=== PATIENT | female | born 1950 | race African-American/Black ===

== ENCOUNTER 2017-08-08 09:35 | Inpatient (IN) ==
[2017-08-08] MEDS ORDERED: ONDANSETRON 4 MG/2 ML VIAL IV PRN ×2 (10:01→11:41)
[2017-08-08 10:49] LABS: Apearance,Urine CLEAR (Clear); Bilirubin,Urine Negative (Negative); Blood, Urine Negative (Negative); Glucose,Urine (UA) Negative (Negative); Ketones,Urine Negative (Negative); Nitrite,Urine Negative (Negative); Protein,Urine Negative; RBC,Urine <1 /HPF (0-4); Squamous Epithelial Cell,Urine Occasional /HPF (0-10); Urine Color Yellow (Yellow); Urine Urobilinogen < 2.0 EU/DL (0.2-1.0); WBC,Urine <1 /HPF (0-6)
[2017-08-08 11:08] LABS: Basophils % 0.4 % (0.0-0.8); Eosinophils # 0.1 10*3/uL (0.0-0.87); Eosinophils % 0.8 % (0.00-10.9); Hematocrit 33.8 VOL% (35.7-47.0); Hemoglobin 11.7 GM/DL (12.0-16.0); Immature Granulocytes % 0.7 %; Immature Granulocytes Absolute 0.05 #; Lymphocytes # 0.6 10*3/uL (1.4-4.0); Lymphocytes % 8.1 % (21.3-54.2); Mean Corpuscular HGB Conc 34.6 GM/DL (32-36); Mean Corpuscular Hemoglobin 30 PG (27-34); Mean Corpuscular Volume 86.4 FL (87-102); Mean Platelet Volume 10.4 FL (9.6-12.0); Monocytes # 0.6 10*3/uL (0.11-0.8); Monocytes % 7.3 % (1.7-12.7); Neutrophils # 6.2 10*3/uL (1.4-7.4); Neutrophils % 82.7 % (38.7-73.9); Platelet Count 210 T/CUMM (130-400); Red Blood Count 3.91 MC/CUMM (3.8-5.5); Red Cell Distribution Width 14.2 % (9.3-17.3); White Blood Count 7.5 T/CUMM (4-12)
[2017-08-08 11:14] LABS: INR 1.2; PT Patient Result 12.7 SECS
[2017-08-08 11:34] LABS: Alanine Aminotransferase 16 U/L (13-56); Albumin 2.2 G/DL (3.4-5.0); Alkaline Phosphatase 146 U/L (45-117); Aspartate Amino Transferase 17 U/L (0-37); Bilirubin,Total < 0.39 MG/DL (0.2-1.0); Blood Urea Nitrogen 8 MG/DL (7-18); Calcium 8.3 MG/DL (8.5-10.1); Glucose 76 MG/DL (74-106); Osmolality,Calculated 269.8 MOS/KG (273-304); Potassium 4.2 MMOL/L (3.5-5.1); Sodium 137 MMOL/L (136-145); Total Protein 6.3 G/DL (6.4-8.3); Troponin I Only 0.179 NG/ML (0.00-0.045)
[2017-08-08] MEDS ORDERED: ACETAMINOPHEN 325 MG TABLET PO PRN (11:41)
[2017-08-08] MEDS ORDERED: SODIUM CHLORIDE 0.9% 1,000 ML IV SCH (12:00)
[2017-08-08] MEDS: FOLIC ACID 1 MG TABLET PO SCH (18:20)
[2017-08-08 18:37] LABS: CKMB % 3.6 %
[2017-08-08 18:38] LABS: Troponin I Only 0.105 NG/ML (0.00-0.045)
[2017-08-08] MEDS: ASPIRIN EC 81 MG TABLET PO SCH (21:27)
[2017-08-08] MEDS: LORATADINE 10 MG TABLET PO SCH (21:28)
[2017-08-08] MEDS: PRAVASTATIN 40 MG TABLET PO SCH (21:28)
[2017-08-08 22:31] LABS: CKMB % 3.7 %
[2017-08-08 22:32] LABS: Troponin I Only 0.082 NG/ML (0.00-0.045)
[2017-08-09 04:40] LABS: Basophils % 0.6 % (0.0-0.8); Eosinophils # 0.2 10*3/uL (0.0-0.87); Eosinophils % 3.1 % (0.00-10.9); Hematocrit 31.9 VOL% (35.7-47.0); Hemoglobin 11.2 GM/DL (12.0-16.0); Immature Granulocytes % 0.4 %; Immature Granulocytes Absolute 0.02 #; Lymphocytes # 1.3 10*3/uL (1.4-4.0); Lymphocytes % 23.9 % (21.3-54.2); Mean Corpuscular HGB Conc 35.1 GM/DL (32-36); Mean Corpuscular Hemoglobin 30 PG (27-34); Mean Corpuscular Volume 85.8 FL (87-102); Mean Platelet Volume 11.3 FL (9.6-12.0); Monocytes # 0.8 10*3/uL (0.11-0.8); Monocytes % 13.9 % (1.7-12.7); Neutrophils # 3.1 10*3/uL (1.4-7.4); Neutrophils % 58.1 % (38.7-73.9); Platelet Count 203 T/CUMM (130-400); Red Blood Count 3.72 MC/CUMM (3.8-5.5); Red Cell Distribution Width 14.3 % (9.3-17.3); White Blood Count 5.4 T/CUMM (4-12)
[2017-08-09 05:27] LABS: Calcium 8.3 MG/DL (8.5-10.1); Osmolality,Calculated 280.3 MOS/KG (273-304); Potassium 3.6 MMOL/L (3.5-5.1); Risk Ratio 2.75; Thyroid Stimulating Hormone 0.665 uIU/ml (0.358-3.74)
[2017-08-09] MEDS: PANTOPRAZOLE 40 MG TABLET PO SCH (09:01)
[2017-08-09] MEDS: CALCIUM (CARBONATE)/VITAMIN D 600 MG-400 UNIT TABLET PO SCH (09:01)
[2017-08-09] MEDS ORDERED: diphenhydrAMINE CAP 25 MG CAPSULE PO ONE (12:30)
[2017-08-09] MEDS ORDERED: MAGNESIUM SULF RIDER 2 GM in PREMIX 1 EACH IV PRN (12:30)
[2017-08-09] MEDS ORDERED: DIAZEPAM 5 MG TABLET PO ONE (12:30)
[2017-08-09] MEDS ORDERED: SODIUM CHLORIDE 0.45% 1,000 ML IV SCH ×2 (12:30→20:30)
[2017-08-09] MEDS ORDERED: POTASSIUM CHLORIDE RIDER 10 MEQ in PREMIX 1 EACH IV PRN (12:30)
[2017-08-09] MEDS ORDERED: HEPARIN/NACL 0.9% 2 UNITS/ML 1,000 ML IV ONE (13:32)
[2017-08-09] MEDS ORDERED: MIDAZOLAM 2 MG/2 ML VIAL ONE (13:36)
[2017-08-09] MEDS ORDERED: fentaNYL 100 MCG/2 ML VIAL ONE (13:36)
[2017-08-09] MEDS ORDERED: NITROGLYCERIN DRIP 50 MG/250 ML BOTTLE IV ONE (13:46)
[2017-08-09] MEDS ORDERED: VERAPAMIL 5 MG/2 ML VIAL ONE (13:46)
[2017-08-09] MEDS ORDERED: ENOXAPARIN 60 MG/0.6 ML SYRINGE ONE (14:04)
[2017-08-09] MEDS: FOLIC ACID 1 MG TABLET PO SCH (18:07)
[2017-08-09] MEDS: PRAVASTATIN 40 MG TABLET PO SCH (21:16)
[2017-08-09] MEDS: ASPIRIN EC 81 MG TABLET PO SCH (21:16)
[2017-08-09] MEDS: LORATADINE 10 MG TABLET PO SCH (21:16)
[2017-08-10 05:12] LABS: Basophils # 0.1 10*3/uL (0.0-0.2); Basophils % 0.8 % (0.0-0.8); Eosinophils # 0.3 10*3/uL (0.0-0.87); Hematocrit 33.3 VOL% (35.7-47.0); Hemoglobin 11.3 GM/DL (12.0-16.0); Immature Granulocytes % 0.5 %; Immature Granulocytes Absolute 0.03 #; Lymphocytes # 1.5 10*3/uL (1.4-4.0); Mean Corpuscular HGB Conc 33.9 GM/DL (32-36); Mean Corpuscular Hemoglobin 30 PG (27-34); Mean Corpuscular Volume 88.1 FL (87-102); Mean Platelet Volume 11.2 FL (9.6-12.0); Monocytes # 0.9 10*3/uL (0.11-0.8); Monocytes % 14.5 % (1.7-12.7); Neutrophils # 3.5 10*3/uL (1.4-7.4); Neutrophils % 56.2 % (38.7-73.9); Platelet Count 220 T/CUMM (130-400); Red Blood Count 3.78 MC/CUMM (3.8-5.5); Red Cell Distribution Width 14.4 % (9.3-17.3); White Blood Count 6.3 T/CUMM (4-12)
[2017-08-10 05:57] LABS: Calcium 8.1 MG/DL (8.5-10.1); Osmolality,Calculated 280.3 MOS/KG (273-304); Potassium 3.8 MMOL/L (3.5-5.1)
[2017-08-10] MEDS ORDERED: ceFAZolin 1,000 MG in SYRINGE 1 EACH IV ONE (06:30)
[2017-08-10] MEDS ORDERED: ceFAZolin 1,000 MG VIAL IRRIG ONE (06:30)
[2017-08-10] MEDS ORDERED: HEPARIN/NACL 0.9% 2 UNITS/ML 500 ML IV ONE (07:11)
[2017-08-10] MEDS ORDERED: TISSUE ADHESIVE 1 EACH APPLICATOR TOP ONE (07:12)
[2017-08-10] MEDS ORDERED: fentaNYL 100 MCG/2 ML VIAL ONE (07:12)
[2017-08-10] MEDS ORDERED: MIDAZOLAM 2 MG/2 ML VIAL ONE (07:12)
[2017-08-10] MEDS ORDERED: ceFAZolin 1,000 MG VIAL ONE (07:13)
[2017-08-10] MEDS: CALCIUM (CARBONATE)/VITAMIN D 600 MG-400 UNIT TABLET PO SCH (18:46)
[2017-08-10] MEDS: PANTOPRAZOLE 40 MG TABLET PO SCH (18:47)
[2017-08-10] MEDS: LORATADINE 10 MG TABLET PO SCH (21:14)
[2017-08-10] MEDS: FOLIC ACID 1 MG TABLET PO SCH (21:14)
[2017-08-10] MEDS: ASPIRIN EC 81 MG TABLET PO SCH (21:14)
[2017-08-10] MEDS: PRAVASTATIN 40 MG TABLET PO SCH (21:14)
[2017-08-11 06:59] LABS: Basophils % 0.7 % (0.0-0.8); Eosinophils # 0.2 10*3/uL (0.0-0.87); Eosinophils % 3.8 % (0.00-10.9); Hematocrit 37.5 VOL% (35.7-47.0); Hemoglobin 12.6 GM/DL (12.0-16.0); Immature Granulocytes % 0.3 %; Immature Granulocytes Absolute 0.02 #; Lymphocytes # 1.6 10*3/uL (1.4-4.0); Lymphocytes % 27.7 % (21.3-54.2); Mean Corpuscular HGB Conc 33.6 GM/DL (32-36); Mean Corpuscular Hemoglobin 30 PG (27-34); Mean Corpuscular Volume 88.7 FL (87-102); Mean Platelet Volume 10.6 FL (9.6-12.0); Monocytes # 0.6 10*3/uL (0.11-0.8); Monocytes % 10.3 % (1.7-12.7); Neutrophils # 3.3 10*3/uL (1.4-7.4); Neutrophils % 57.2 % (38.7-73.9); Platelet Count 192 T/CUMM (130-400); Red Blood Count 4.23 MC/CUMM (3.8-5.5); Red Cell Distribution Width 14.8 % (9.3-17.3); White Blood Count 5.8 T/CUMM (4-12)
[2017-08-11 07:21] LABS: Calcium 8.2 MG/DL (8.5-10.1); Osmolality,Calculated 279.4 MOS/KG (273-304); Potassium 3.8 MMOL/L (3.5-5.1)
[2017-08-11 08:29] VITALS: BP 118/73
[2017-08-11] MEDS: PANTOPRAZOLE 40 MG TABLET PO SCH (08:47)
[2017-08-11] MEDS: CALCIUM (CARBONATE)/VITAMIN D 600 MG-400 UNIT TABLET PO SCH (08:47)
[2017-08-11] MEDS ORDERED: MAGNESIUM SULF RIDER 2 GM in PREMIX 1 EACH IV ONE (09:13)
[2017-08-12] MEDS ORDERED: FUROSEMIDE 20 MG TABLET PO SCH (09:00)
[2017-08-12] MEDS ORDERED: METHOTREXATE 2.5 MG TABLET PO SCH (12:00)
== END 2017-08-11 15:32 | disposition home or self-care (01) | DRG 243 ==
LOC: N.ED 09:35 → N.EDINP 10:32 → N.TELEN 14:19
PROVIDERS: ADMIT Internal Medicine; ATTEND Internal Medicine
PROC: CLCCHCL (ICD-10-PCS; 2017-08-09 14:15)

== ENCOUNTER 2019-08-20 10:15 | Inpatient (IN) ==
[2019-08-20] MEDS ORDERED: FUROSEMIDE 100 MG/10 ML VIAL IV STA (12:26)
[2019-08-20 12:59] LABS: Basophils # 0.1 10*3/uL (0.0-0.2); Basophils % 0.4 % (0.0-0.8); Eosinophils # 0.1 10*3/uL (0.0-0.87); Eosinophils % 0.4 % (0.00-10.9); Hematocrit 35.4 VOL% (35.7-47.0); Hemoglobin 11.7 GM/DL (12.0-16.0); Immature Granulocytes % 0.7 %; Immature Granulocytes Absolute 0.09 #; Lymphocytes # 0.8 10*3/uL (1.4-4.0); Lymphocytes % 5.7 % (21.3-54.2); Mean Corpuscular HGB Conc 33.1 GM/DL (32-36); Mean Corpuscular Volume 84.5 FL (87-102); Mean Platelet Volume 11.5 FL (9.6-12.0); Monocytes % 5.6 % (1.7-12.7); Neutrophils % 87.2 % (38.7-73.9); Platelet Count 260 T/CUMM (130-400); Red Blood Count 4.19 MC/CUMM (3.8-5.5); Red Cell Distribution Width 14.1 % (9.3-17.3); White Blood Count 13.1 T/CUMM (4-12)
[2019-08-20 13:22] LABS: Bilirubin,Total 0.5 MG/DL (0.2-1.0); Calcium 9.3 MG/DL (8.5-10.1); Ferritin 282.1 ng/ml (8-252); Osmolality,Calculated 264.4 MOS/KG (273-304); Total Protein 8.9 G/DL (6.4-8.3)
[2019-08-20 13:58] LABS: Hypochromasia Slight; Microcytosis Slight; Platelet Estimate Normal
[2019-08-20] MEDS ORDERED: GLUCAGON 1 MG VIAL IM PRN (15:35)
[2019-08-20] MEDS ORDERED: DEXTROSE 10% 250 ML BAG IV PRN (15:35)
[2019-08-20] MEDS ORDERED: ONDANSETRON 4 MG/2 ML VIAL IV PRN (15:35)
[2019-08-20] MEDS ORDERED: guaiFENesin/DM ER 600-30 MG TABLET PO PRN (15:35)
[2019-08-20] MEDS ORDERED: DOCUSATE SODIUM 100 MG CAPSULE PO PRN (15:35)
[2019-08-20] MEDS ORDERED: LACTULOSE 20 GM/30 ML UDCUP PO PRN (15:35)
[2019-08-20] MEDS ORDERED: FUROSEMIDE 40 MG/4 ML VIAL ONE (16:38)
[2019-08-20] MEDS: ENOXAPARIN 40 MG/0.4 ML SYRINGE SUBCUT SCH (17:25)
[2019-08-20] MEDS: cefTRIAXone 1,000 MG in SYRINGE 1 EACH IV SCH (17:26)
[2019-08-20] MEDS: DOXYCYCLINE HYCLATE 100 MG CAPSULE PO SCH (20:30)
[2019-08-21 07:26] LABS: Basophils # 0.1 10*3/uL (0.0-0.2); Basophils % 0.5 % (0.0-0.8); Eosinophils # 0.1 10*3/uL (0.0-0.87); Eosinophils % 1.2 % (0.00-10.9); Hematocrit 35.3 VOL% (35.7-47.0); Hemoglobin 11.7 GM/DL (12.0-16.0); Immature Granulocytes % 0.4 %; Immature Granulocytes Absolute 0.05 #; Lymphocytes # 1.8 10*3/uL (1.4-4.0); Lymphocytes % 16.2 % (21.3-54.2); Mean Corpuscular HGB Conc 33.1 GM/DL (32-36); Mean Corpuscular Volume 81.5 FL (87-102); Mean Platelet Volume 10.6 FL (9.6-12.0); Monocytes % 8.6 % (1.7-12.7); Neutrophils % 73.1 % (38.7-73.9); Platelet Count 389 T/CUMM (130-400); Red Blood Count 4.33 MC/CUMM (3.8-5.5); Red Cell Distribution Width 13.3 % (9.3-17.3); White Blood Count 11.3 T/CUMM (4-12)
[2019-08-21 07:51] LABS: Albumin 2.9 G/DL (3.4-5.0); Bilirubin,Total 1.7 MG/DL (0.2-1.0); Calcium 9.5 MG/DL (8.5-10.1); Osmolality,Calculated 273.7 MOS/KG (273-304); Thyroid Stimulating Hormone 0.429 uIU/ml (0.358-3.74); Total Protein 8.9 G/DL (6.4-8.3)
[2019-08-21 07:57] LABS: Apearance,Urine CLEAR (Clear); Bilirubin,Urine Negative (Negative); Blood, Urine Negative (Negative); Glucose,Urine (UA) Negative (Negative); Ketones,Urine 5 mg/dL (Negative); Mucus,Urine Occasional /LPF (Occasional); Nitrite,Urine Negative (Negative); Protein,Urine 100 MG/DL; RBC,Urine 1 /HPF (0-4); Squamous Epithelial Cell,Urine Occasional /HPF (0-10); Urine Color Yellow (Yellow); Urine Specific Gravity 1.015 (1.001-1.035); Urine Urobilinogen < 2.0 EU/DL (0.2-1.0); WBC,Urine 5 /HPF (0-6)
[2019-08-21] MEDS ORDERED: POTASSIUM CHLORIDE 20 MEQ TABLET PO ONE (08:03)
[2019-08-21] MEDS: HYDROXYCHLOROQUINE 200 MG TABLET PO SCH ×2 (08:13→20:45)
[2019-08-21] MEDS: PANTOPRAZOLE 40 MG TABLET PO SCH (08:13)
[2019-08-21] MEDS: DOXYCYCLINE HYCLATE 100 MG CAPSULE PO SCH ×2 (08:13→20:45)
[2019-08-21] MEDS ORDERED: ZINC SULFATE 220 MG CAPSULE PO SCH (09:00)
[2019-08-21] MEDS ORDERED: BENZONATATE 100 MG CAPSULE PO PRN (11:41)
[2019-08-21] MEDS: cefTRIAXone 1,000 MG in SYRINGE 1 EACH IV SCH (16:32)
[2019-08-21] MEDS: ENOXAPARIN 40 MG/0.4 ML SYRINGE SUBCUT SCH (16:32)
[2019-08-21] MEDS: carvediloL 3.125 MG TABLET PO SCH (20:45)
[2019-08-21] MEDS: MYCOPHENOLATE MOFETIL 250 MG CAPSULE PO SCH (20:45)
[2019-08-21] MEDS ORDERED: SIMVASTATIN 20 MG TABLET PO SCH (21:00)
[2019-08-22 06:34] LABS: Basophils # 0.1 10*3/uL (0.0-0.2); Basophils % 0.8 % (0.0-0.8); Eosinophils # 0.6 10*3/uL (0.0-0.87); Eosinophils % 6.5 % (0.00-10.9); Hematocrit 34.2 VOL% (35.7-47.0); Hemoglobin 11.3 GM/DL (12.0-16.0); Immature Granulocytes % 0.5 %; Immature Granulocytes Absolute 0.04 #; Lymphocytes # 1.6 10*3/uL (1.4-4.0); Lymphocytes % 18.8 % (21.3-54.2); Mean Platelet Volume 10.3 FL (9.6-12.0); Monocytes % 13.8 % (1.7-12.7); Neutrophils % 59.6 % (38.7-73.9); Platelet Count 350 T/CUMM (130-400); Red Blood Count 4.07 MC/CUMM (3.8-5.5); Red Cell Distribution Width 13.5 % (9.3-17.3); White Blood Count 8.7 T/CUMM (4-12)
[2019-08-22 08:30] LABS: Albumin 2.5 G/DL (3.4-5.0); Bilirubin,Total 1.1 MG/DL (0.2-1.0); Calcium 9.1 MG/DL (8.5-10.1); Osmolality,Calculated 277.4 MOS/KG (273-304); Total Protein 7.7 G/DL (6.4-8.3)
[2019-08-22] MEDS: DOXYCYCLINE HYCLATE 100 MG CAPSULE PO SCH (08:37)
[2019-08-22] MEDS: MYCOPHENOLATE MOFETIL 250 MG CAPSULE PO SCH (08:38)
[2019-08-22] MEDS: carvediloL 3.125 MG TABLET PO SCH (08:39)
[2019-08-22] MEDS: PANTOPRAZOLE 40 MG TABLET PO SCH (08:39)
[2019-08-22] MEDS ORDERED: HYDROXYCHLOROQUINE 200 MG TABLET PO SCH (09:00)
[2019-08-22] MEDS ORDERED: hydroCHLOROthiazide 12.5 MG CAPSULE PO SCH (09:00)
[2019-08-22] MEDS ORDERED: amLODIPine 10 MG TABLET PO SCH (09:00)
[2019-08-22] MEDS ORDERED: POTASSIUM CHLORIDE 10 MEQ TABLET PO SCH (09:00)
[2019-08-22] MEDS ORDERED: lisinopriL 10 MG TABLET PO SCH (09:00)
[2019-08-22 12:12] VITALS: BP 100/72
== END 2019-08-22 14:15 | disposition home or self-care (01) | DRG 195 ==
LOC: N.ED 10:15 → N.EDINP 15:34 → N.2E 16:28
PROVIDERS: ADMIT Internal Medicine; ATTEND Internal Medicine

== ENCOUNTER 2019-09-03 03:03 | Inpatient (IN) ==
[2019-09-03] MEDS ORDERED: FUROSEMIDE 100 MG/10 ML VIAL IV STA (03:36)
[2019-09-03] MEDS ORDERED: ONDANSETRON 4 MG/2 ML VIAL IV STA (03:36)
[2019-09-03] MEDS ORDERED: methylPREDNISolone SOD SUC 125 MG/2 ML VIAL IV STA (03:36)
[2019-09-03] MEDS ORDERED: ALBUTEROL NEB SOLN 5 MG/ML 20 ML/BOTTLE CONT NEB SCH (04:00)
[2019-09-03 04:11] LABS: Allen Test Positive; Pt O2 Delivery Device BIPAP
[2019-09-03 04:15] LABS: ABG Base Excess -5.8 MMOL/L (-2.5-2.5); ABG HCO3 18.3 MMOL/L (20-26); ABG Oxygen Saturation 98.1 % (95-100); ABG PCO2 31.4 MM HG (35-48); ABG PH 7.384 (7.35-7.45); ABG PO2 118.8 MM HG (80-95); ABG TCO2 19.3 MMOL/L (23-27)
[2019-09-03 04:25] LABS: Basophils % 0.2 % (0.0-0.8); Eosinophils # 0.2 10*3/uL (0.0-0.87); Eosinophils % 1.1 % (0.00-10.9); Hematocrit 32.4 VOL% (35.7-47.0); Hemoglobin 10.6 GM/DL (12.0-16.0); Immature Granulocytes % 0.6 %; Immature Granulocytes Absolute 0.09 #; Lymphocytes # 0.8 10*3/uL (1.4-4.0); Lymphocytes % 5.2 % (21.3-54.2); Mean Corpuscular HGB Conc 32.7 GM/DL (32-36); Mean Corpuscular Volume 84.2 FL (87-102); Mean Platelet Volume 9.8 FL (9.6-12.0); Monocytes % 2.1 % (1.7-12.7); Neutrophils % 90.8 % (38.7-73.9); Platelet Count 369 T/CUMM (130-400); Red Blood Count 3.85 MC/CUMM (3.8-5.5); Red Cell Distribution Width 14.7 % (9.3-17.3); White Blood Count 15.8 T/CUMM (4-12)
[2019-09-03 04:45] LABS: INR 1.2; PT Patient Result 12.9 SECS (9.8-11.9)
[2019-09-03 04:48] LABS: Barbiturates Screen,Urine Negative (Negative); Benzodiazepines Screen,Urine Negative (Negative); Cannabinoid Screen,Urine Negative (Negative); Opiate Screen,Urine Negative (Negative); Phencyclidine Screen,Urine Negative (Negative)
[2019-09-03 04:49] LABS: Band Neutrophils 6 % (0-10); Eosinophils 1 % (0-10); Hypochromasia 1+; Lymphocytes 2 % (20-55); Microcytosis Slight; Polychromasia Slight; Segmented Neutrophils 89 % (50-85); Total Cells Counted 100
[2019-09-03 04:56] LABS: Alanine Aminotransferase 13 U/L (13-56); Albumin 2.4 G/DL (3.4-5.0); Alkaline Phosphatase 86 U/L (45-117); Aspartate Amino Transferase 21 U/L (0-37); Blood Urea Nitrogen 8 MG/DL (7-18); Estimated Glom Filtration Rate 57 ML/MIN; Glucose 125 MG/DL (74-106); Osmolality,Calculated 264.4 MOS/KG (273-304); Total Protein 8.6 G/DL (6.4-8.3); Troponin I < 0.015 NG/ML (0.00-0.045)
[2019-09-03 05:00] LABS: Apearance,Urine Slightly Hazy (Clear); Bacteria,Urine Occasional /HPF (Few); Bilirubin,Urine Negative (Negative); Blood, Urine Negative (Negative); Glucose,Urine (UA) Negative (Negative); Hyaline Casts,Urine 1 /LPF (0-3); Ketones,Urine Negative (Negative); Mucus,Urine Few /LPF (Occasional); Nitrite,Urine Negative (Negative); Protein,Urine 30 MG/DL; RBC,Urine 1 /HPF (0-4); Squamous Epithelial Cell,Urine Occasional /HPF (0-10); Urine Color Yellow (Yellow); Urine Specific Gravity 1.012 (1.001-1.035); Urine Urobilinogen < 2.0 EU/DL (0.2-1.0); WBC,Urine 1 /HPF (0-6)
[2019-09-03] MEDS ORDERED: MAGNESIUM SULF RIDER 2 GM in PREMIX 1 EACH IV STA (05:00)
[2019-09-03] MEDS ORDERED: ENOXAPARIN 100 MG/ML SYRINGE SUBCUT STA (05:12)
[2019-09-03] MEDS ORDERED: guaiFENesin/DM ER 600-30 MG TABLET PO PRN (06:24)
[2019-09-03] MEDS ORDERED: ACETAMINOPHEN 325 MG TABLET PO PRN (06:24)
[2019-09-03] MEDS ORDERED: BENZONATATE 100 MG CAPSULE PO PRN (06:24)
[2019-09-03] MEDS ORDERED: NIFEdipine 10 MG CAPSULE PO PRN (06:41)
[2019-09-03] MEDS ORDERED: ALUMINUM/MAGNES/SIMETH MAX STR 30 ML UDCUP PO PRN (06:41)
[2019-09-03] MEDS ORDERED: ONDANSETRON 4 MG/2 ML VIAL IV PRN (06:41)
[2019-09-03] MEDS ORDERED: ZALEPLON 5 MG CAPSULE PO PRN (06:41)
[2019-09-03] MEDS ORDERED: FUROSEMIDE 40 MG/4 ML VIAL IV ONE (08:17)
[2019-09-03] MEDS: SODIUM CHLORIDE 0.9% 1,000 ML IV SCH (08:20)
[2019-09-03] MEDS: cefTRIAXone 1,000 MG in SYRINGE 1 EACH IV SCH (09:11)
[2019-09-03] MEDS: PANTOPRAZOLE 40 MG TABLET PO SCH (09:12)
[2019-09-03] MEDS: MYCOPHENOLATE MOFETIL 250 MG CAPSULE PO SCH ×2 (09:12→20:45)
[2019-09-03] MEDS: CALCIUM (CARBONATE) 600 MG TABLET PO SCH (09:12)
[2019-09-03] MEDS: carvediloL 3.125 MG TABLET PO SCH ×2 (09:12→20:45)
[2019-09-03] MEDS: POTASSIUM CHLORIDE 10 MEQ TABLET PO SCH (09:12)
[2019-09-03] MEDS: DOXYCYCLINE HYCLATE INJ 100 MG in SODIUM CHLORIDE 0.9% 100 ML IV SCH ×2 (09:41→21:31)
[2019-09-03] MEDS: methylPREDNISolone SOD SUC 40 MG/1 ML VIAL IV SCH (16:43)
[2019-09-03] MEDS: ALBUTEROL/IPRATROPIUM 3 ML NEB RESP TX SCH ×3 (17:38→20:45)
[2019-09-03] MEDS: SIMVASTATIN 20 MG TABLET PO SCH (20:45)
[2019-09-03] MEDS: LORATADINE 10 MG TABLET PO SCH (20:45)
[2019-09-04] MEDS: ALBUTEROL/IPRATROPIUM 3 ML NEB RESP TX SCH ×4 (01:36→19:22)
[2019-09-04] MEDS: methylPREDNISolone SOD SUC 40 MG/1 ML VIAL IV SCH ×2 (04:05→16:36)
[2019-09-04 04:36] LABS: Basophils % 0.1 % (0.0-0.8); Hematocrit 28.3 VOL% (35.7-47.0); Hemoglobin 9.1 GM/DL (12.0-16.0); Immature Granulocytes % 0.8 %; Immature Granulocytes Absolute 0.17 #; Lymphocytes # 1.3 10*3/uL (1.4-4.0); Mean Corpuscular HGB Conc 32.2 GM/DL (32-36); Mean Corpuscular Volume 84.7 FL (87-102); Mean Platelet Volume 10.1 FL (9.6-12.0); Monocytes % 1.7 % (1.7-12.7); Neutrophils % 91.4 % (38.7-73.9); Platelet Count 329 T/CUMM (130-400); Red Blood Count 3.34 MC/CUMM (3.8-5.5); White Blood Count 21.8 T/CUMM (4-12)
[2019-09-04 04:51] LABS: Alanine Aminotransferase 14 U/L (13-56); Albumin 2.5 G/DL (3.4-5.0); Alkaline Phosphatase 90 U/L (45-117); Aspartate Amino Transferase 22 U/L (0-37); Blood Urea Nitrogen 20 MG/DL (7-18); Calcium 9.2 MG/DL (8.5-10.1); Estimated Glom Filtration Rate 63 ML/MIN; Glucose 104 MG/DL (74-106); Total Protein 9.2 G/DL (6.4-8.3); Troponin I < 0.015 NG/ML (0.00-0.045)
[2019-09-04 05:13] LABS: Band Neutrophils 1 % (0-10); Hypochromasia 1+; Lymphocytes 8 % (20-55); Platelet Estimate Adequate; Segmented Neutrophils 89 % (50-85); Total Cells Counted 100
[2019-09-04 05:14] LABS: Microcytosis Slight
[2019-09-04] MEDS: ENOXAPARIN 40 MG/0.4 ML SYRINGE SUBCUT SCH (06:22)
[2019-09-04] MEDS: SODIUM CHLORIDE 0.9% 1,000 ML IV SCH (08:20)
[2019-09-04] MEDS: cefTRIAXone 1,000 MG in SYRINGE 1 EACH IV SCH (08:21)
[2019-09-04] MEDS: DOXYCYCLINE HYCLATE INJ 100 MG in SODIUM CHLORIDE 0.9% 100 ML IV SCH ×2 (08:22→21:35)
[2019-09-04] MEDS: MYCOPHENOLATE MOFETIL 250 MG CAPSULE PO SCH ×2 (08:22→21:15)
[2019-09-04] MEDS: carvediloL 3.125 MG TABLET PO SCH ×2 (08:23→21:16)
[2019-09-04] MEDS: CALCIUM (CARBONATE) 600 MG TABLET PO SCH (08:23)
[2019-09-04] MEDS: PANTOPRAZOLE 40 MG TABLET PO SCH (08:23)
[2019-09-04] MEDS: POTASSIUM CHLORIDE 10 MEQ TABLET PO SCH (08:24)
[2019-09-04] MEDS: LORATADINE 10 MG TABLET PO SCH (21:16)
[2019-09-04] MEDS: SIMVASTATIN 20 MG TABLET PO SCH (21:16)
[2019-09-05] MEDS: ALBUTEROL/IPRATROPIUM 3 ML NEB RESP TX SCH ×4 (01:04→19:20)
[2019-09-05] MEDS: methylPREDNISolone SOD SUC 40 MG/1 ML VIAL IV SCH ×2 (04:29→15:46)
[2019-09-05] MEDS: ENOXAPARIN 40 MG/0.4 ML SYRINGE SUBCUT SCH (05:07)
[2019-09-05] MEDS: cefTRIAXone 1,000 MG in SYRINGE 1 EACH IV SCH (08:34)
[2019-09-05] MEDS: DOXYCYCLINE HYCLATE INJ 100 MG in SODIUM CHLORIDE 0.9% 100 ML IV SCH ×2 (08:34→22:06)
[2019-09-05] MEDS: CALCIUM (CARBONATE) 600 MG TABLET PO SCH (08:35)
[2019-09-05] MEDS: POTASSIUM CHLORIDE 10 MEQ TABLET PO SCH (08:35)
[2019-09-05] MEDS: carvediloL 3.125 MG TABLET PO SCH ×2 (08:35→22:06)
[2019-09-05] MEDS: MYCOPHENOLATE MOFETIL 250 MG CAPSULE PO SCH ×2 (08:35→22:06)
[2019-09-05] MEDS: PANTOPRAZOLE 40 MG TABLET PO SCH (08:35)
[2019-09-05] MEDS: SIMVASTATIN 20 MG TABLET PO SCH (22:06)
[2019-09-05] MEDS: LORATADINE 10 MG TABLET PO SCH (22:06)
[2019-09-06] MEDS: ALBUTEROL/IPRATROPIUM 3 ML NEB RESP TX SCH ×4 (00:02→20:02)
[2019-09-06] MEDS: methylPREDNISolone SOD SUC 40 MG/1 ML VIAL IV SCH ×2 (03:58→16:59)
[2019-09-06] MEDS: ENOXAPARIN 40 MG/0.4 ML SYRINGE SUBCUT SCH (05:11)
[2019-09-06 06:35] LABS: Basophils % 0.1 % (0.0-0.8); Hematocrit 30.3 VOL% (35.7-47.0); Immature Granulocytes % 0.9 %; Immature Granulocytes Absolute 0.19 #; Lymphocytes # 1.6 10*3/uL (1.4-4.0); Lymphocytes % 7.9 % (21.3-54.2); Mean Corpuscular Volume 82.3 FL (87-102); Mean Platelet Volume 10.1 FL (9.6-12.0); Monocytes % 4.3 % (1.7-12.7); Neutrophils % 86.8 % (38.7-73.9); Platelet Count 385 T/CUMM (130-400); Red Blood Count 3.68 MC/CUMM (3.8-5.5); White Blood Count 20.2 T/CUMM (4-12)
[2019-09-06 07:33] LABS: Calcium 9.1 MG/DL (8.5-10.1); Osmolality,Calculated 274.8 MOS/KG (273-304)
[2019-09-06] MEDS: POTASSIUM CHLORIDE 10 MEQ TABLET PO SCH (09:46)
[2019-09-06] MEDS: carvediloL 3.125 MG TABLET PO SCH ×2 (09:46→21:42)
[2019-09-06] MEDS: PANTOPRAZOLE 40 MG TABLET PO SCH (09:46)
[2019-09-06] MEDS: MYCOPHENOLATE MOFETIL 250 MG CAPSULE PO SCH ×2 (09:46→21:42)
[2019-09-06] MEDS: CALCIUM (CARBONATE) 600 MG TABLET PO SCH (09:49)
[2019-09-06] MEDS: cefTRIAXone 1,000 MG in SYRINGE 1 EACH IV SCH ×2 (09:49→17:00)
[2019-09-06] MEDS: DOXYCYCLINE HYCLATE INJ 100 MG in SODIUM CHLORIDE 0.9% 100 ML IV SCH ×3 (09:49→21:42)
[2019-09-06 11:39] LABS: Lymphocytes 16 % (20-55); Segmented Neutrophils 79 % (50-85); Total Cells Counted 100
[2019-09-06 11:40] LABS: Hypochromasia 3+; Microcytosis 1+; Platelet Estimate Normal; Polychromasia Slight; Target Cells Slight
[2019-09-06] MEDS: LORATADINE 10 MG TABLET PO SCH (21:41)
[2019-09-06] MEDS: SIMVASTATIN 20 MG TABLET PO SCH (21:42)
[2019-09-07] MEDS: ALBUTEROL/IPRATROPIUM 3 ML NEB RESP TX SCH ×4 (01:58→19:06)
[2019-09-07] MEDS: methylPREDNISolone SOD SUC 40 MG/1 ML VIAL IV SCH ×2 (03:34→15:43)
[2019-09-07] MEDS: ENOXAPARIN 40 MG/0.4 ML SYRINGE SUBCUT SCH (05:49)
[2019-09-07 06:34] LABS: Basophils % 0.1 % (0.0-0.8); Eosinophils % 0.2 % (0.00-10.9); Hematocrit 33.4 VOL% (35.7-47.0); Hemoglobin 10.8 GM/DL (12.0-16.0); Immature Granulocytes % 0.9 %; Immature Granulocytes Absolute 0.11 #; Lymphocytes # 1.8 10*3/uL (1.4-4.0); Lymphocytes % 15.1 % (21.3-54.2); Mean Corpuscular HGB Conc 32.3 GM/DL (32-36); Mean Corpuscular Volume 84.3 FL (87-102); Monocytes % 4.3 % (1.7-12.7); Neutrophils % 79.4 % (38.7-73.9); Platelet Count 390 T/CUMM (130-400); Red Blood Count 3.96 MC/CUMM (3.8-5.5); White Blood Count 12.2 T/CUMM (4-12)
[2019-09-07] MEDS: cefTRIAXone 1,000 MG in SYRINGE 1 EACH IV SCH (08:53)
[2019-09-07] MEDS: carvediloL 3.125 MG TABLET PO SCH ×2 (08:53→21:16)
[2019-09-07] MEDS: MYCOPHENOLATE MOFETIL 250 MG CAPSULE PO SCH ×2 (08:53→21:16)
[2019-09-07] MEDS: POTASSIUM CHLORIDE 10 MEQ TABLET PO SCH (08:53)
[2019-09-07] MEDS: PANTOPRAZOLE 40 MG TABLET PO SCH (08:53)
[2019-09-07] MEDS: CALCIUM (CARBONATE) 600 MG TABLET PO SCH (08:53)
[2019-09-07] MEDS: DOXYCYCLINE HYCLATE INJ 100 MG in SODIUM CHLORIDE 0.9% 100 ML IV SCH ×2 (08:55→21:16)
[2019-09-07] MEDS ORDERED: METHOTREXATE 2.5 MG TABLET PO SCH (09:00)
[2019-09-07 12:01] LABS: Platelet Estimate Increased
[2019-09-07 12:02] LABS: Hypochromasia 2+; Ovalocytes Few; Polychromasia Slight; Target Cells Few
[2019-09-07] MEDS: SIMVASTATIN 20 MG TABLET PO SCH (21:16)
[2019-09-07] MEDS: LORATADINE 10 MG TABLET PO SCH (21:16)
[2019-09-08] MEDS: ALBUTEROL/IPRATROPIUM 3 ML NEB RESP TX SCH ×2 (00:31→07:07)
[2019-09-08] MEDS: methylPREDNISolone SOD SUC 40 MG/1 ML VIAL IV SCH (04:47)
[2019-09-08] MEDS: ENOXAPARIN 40 MG/0.4 ML SYRINGE SUBCUT SCH (05:21)
[2019-09-08] MEDS: POTASSIUM CHLORIDE 10 MEQ TABLET PO SCH (08:55)
[2019-09-08] MEDS: DOXYCYCLINE HYCLATE INJ 100 MG in SODIUM CHLORIDE 0.9% 100 ML IV SCH (08:55)
[2019-09-08] MEDS: cefTRIAXone 1,000 MG in SYRINGE 1 EACH IV SCH (08:55)
[2019-09-08] MEDS: carvediloL 3.125 MG TABLET PO SCH (08:55)
[2019-09-08] MEDS: CALCIUM (CARBONATE) 600 MG TABLET PO SCH (08:56)
[2019-09-08] MEDS: PANTOPRAZOLE 40 MG TABLET PO SCH (08:56)
[2019-09-08] MEDS: MYCOPHENOLATE MOFETIL 250 MG CAPSULE PO SCH (08:56)
[2019-09-08 12:49] VITALS: BP 117/71
== END 2019-09-08 12:30 | disposition home or self-care (01) | DRG 196 ==
LOC: N.ED 03:03 → SUATTDRO 05:35 → N.EDINP 05:35 → N.ICU 06:06 → N.3E 09-04 16:36
PROVIDERS: ADMIT Internal Medicine; ATTEND Internal Medicine Geriatric Medicine

== ENCOUNTER 2019-09-10 00:52 | Observation (INO) ==
[2019-09-10] MEDS ORDERED: ONDANSETRON 4 MG/2 ML VIAL IV STA (01:13)
[2019-09-10] MEDS ORDERED: methylPREDNISolone SOD SUC 125 MG/2 ML VIAL IV STA (01:13)
[2019-09-10] MEDS ORDERED: VANCOMYCIN INJ 1,000 MG in SODIUM CHLORIDE 0.9% 250 ML IV STA (01:13)
[2019-09-10] MEDS ORDERED: AZITHROMYCIN INJ 500 MG in SODIUM CHLORIDE 0.9% 250 ML IV STA (01:13)
[2019-09-10] MEDS ORDERED: VANCOMYCIN 1,000 MG VIAL ONE (01:54)
[2019-09-10] MEDS: TERBUTALINE 1 MG/1 ML VIAL SUBCUT SCH ×2 (02:00→02:34)
[2019-09-10 02:08] LABS: Basophils % 0.1 % (0.0-0.8); Eosinophils # 0.2 10*3/uL (0.0-0.87); Eosinophils % 0.8 % (0.00-10.9); Hematocrit 39.7 VOL% (35.7-47.0); Hemoglobin 12.9 GM/DL (12.0-16.0); Immature Granulocytes % 2.2 %; Immature Granulocytes Absolute 0.39 #; Lymphocytes % 5.8 % (21.3-54.2); Mean Corpuscular HGB Conc 32.5 GM/DL (32-36); Mean Corpuscular Volume 83.2 FL (87-102); Mean Platelet Volume 9.6 FL (9.6-12.0); Monocytes % 1.3 % (1.7-12.7); Neutrophils % 89.8 % (38.7-73.9); Platelet Count 403 T/CUMM (130-400); Red Blood Count 4.77 MC/CUMM (3.8-5.5); Red Cell Distribution Width 15.5 % (9.3-17.3); White Blood Count 18.1 T/CUMM (4-12)
[2019-09-10 02:31] LABS: INR 1.2; PT Patient Result 12.4 SECS (9.8-11.9); Partial Thromboplastin Time 28.8 SECS (23.9-33.8)
[2019-09-10 04:12] LABS: Calcium 9.4 MG/DL (8.5-10.1)
[2019-09-10 04:14] LABS: Albumin 2.8 G/DL (3.4-5.0)
[2019-09-10 04:15] LABS: Blood Urea Nitrogen 16 MG/DL (7-18); Glucose 100 MG/DL (74-106); Osmolality,Calculated 264.5 MOS/KG (273-304)
[2019-09-10 04:17] LABS: Estimated Glom Filtration Rate 64 ML/MIN
[2019-09-10 04:18] LABS: Alanine Aminotransferase 20 U/L (13-56); Aspartate Amino Transferase 21 U/L (0-37)
[2019-09-10 04:19] LABS: Total Protein 8.5 G/DL (6.4-8.3)
[2019-09-10 04:20] LABS: Alkaline Phosphatase 92 U/L (45-117)
[2019-09-10 04:22] LABS: Ferritin 198.9 ng/ml (8-252); Troponin I < 0.015 NG/ML (0.00-0.045)
[2019-09-10] MEDS ORDERED: DEXTROSE 50% 25 GM/50 ML VIAL IV PRN (05:12)
[2019-09-10] MEDS ORDERED: NICOTINE 21 MG/24 HR PATCH TRANSDERM PRN (05:12)
[2019-09-10] MEDS ORDERED: guaiFENesin/DM ER 600-30 MG TABLET PO PRN ×2 (05:12→08:06)
[2019-09-10] MEDS ORDERED: hydrALAZINE 20 MG/1 ML VIAL IV PRN (05:12)
[2019-09-10] MEDS ORDERED: diphenhydrAMINE CAP 25 MG CAPSULE PO PRN (05:12)
[2019-09-10] MEDS ORDERED: ACETAMINOPHEN 325 MG TABLET PO PRN (05:12)
[2019-09-10] MEDS ORDERED: ONDANSETRON 4 MG/2 ML VIAL IV PRN (05:12)
[2019-09-10] MEDS ORDERED: GLUCAGON 1 MG VIAL IM PRN (05:12)
[2019-09-10 05:43] LABS: Apearance,Urine CLEAR (Clear); Bilirubin,Urine Negative (Negative); Blood, Urine Negative (Negative); Glucose,Urine (UA) Negative (Negative); Ketones,Urine Negative (Negative); Nitrite,Urine Negative (Negative); Protein,Urine Negative; RBC,Urine <1 /HPF (0-4); Squamous Epithelial Cell,Urine Occasional /HPF (0-10); Urine Color Yellow (Yellow); Urine Specific Gravity 1.011 (1.001-1.035); Urine Urobilinogen < 2.0 EU/DL (0.2-1.0); WBC,Urine <1 /HPF (0-6)
[2019-09-10] MEDS ORDERED: FUROSEMIDE 20 MG TABLET PO PRN (08:06)
[2019-09-10] MEDS ORDERED: LORATADINE 10 MG TABLET PO PRN (08:06)
[2019-09-10] MEDS ORDERED: BENZONATATE 100 MG CAPSULE PO PRN (08:06)
[2019-09-10] MEDS ORDERED: LISINOPRIL/HCTZ 10-12.5 MG TABLET PO SCH (10:00)
[2019-09-10] MEDS: ENOXAPARIN 40 MG/0.4 ML SYRINGE SUBCUT SCH (10:17)
[2019-09-10] MEDS: CALCIUM (CARBONATE) 600 MG TABLET PO SCH (10:17)
[2019-09-10] MEDS: carvediloL 3.125 MG TABLET PO SCH ×2 (10:17→20:11)
[2019-09-10] MEDS: MYCOPHENOLATE MOFETIL 250 MG CAPSULE PO SCH ×2 (10:17→20:11)
[2019-09-10] MEDS: amLODIPine 10 MG TABLET PO SCH (10:17)
[2019-09-10] MEDS: POTASSIUM CHLORIDE 10 MEQ TABLET PO SCH ×2 (10:17→20:11)
[2019-09-10] MEDS: OMEPRAZOLE ODT 20 MG TABLET PO SCH (12:10)
[2019-09-10] MEDS: VANCOMYCIN INJ 1,000 MG in SODIUM CHLORIDE 0.9% 250 ML IV SCH (16:28)
[2019-09-10] MEDS: methylPREDNISolone SOD SUC 40 MG/1 ML VIAL IV SCH (16:28)
[2019-09-10] MEDS: HYDROXYCHLOROQUINE 200 MG TABLET PO SCH (20:11)
[2019-09-10] MEDS ORDERED: SIMVASTATIN 20 MG TABLET PO SCH (21:00)
[2019-09-11] MEDS: methylPREDNISolone SOD SUC 40 MG/1 ML VIAL IV SCH ×2 (03:50→15:35)
[2019-09-11] MEDS: VANCOMYCIN INJ 1,000 MG in SODIUM CHLORIDE 0.9% 250 ML IV SCH ×2 (03:50→15:35)
[2019-09-11 04:57] LABS: Basophils % 0.1 % (0.0-0.8); Hematocrit 32.5 VOL% (35.7-47.0); Hemoglobin 10.6 GM/DL (12.0-16.0); Immature Granulocytes % 1.1 %; Immature Granulocytes Absolute 0.24 #; Lymphocytes # 1.6 10*3/uL (1.4-4.0); Lymphocytes % 7.3 % (21.3-54.2); Mean Corpuscular HGB Conc 32.6 GM/DL (32-36); Mean Corpuscular Volume 84.2 FL (87-102); Monocytes % 2.9 % (1.7-12.7); Neutrophils % 88.6 % (38.7-73.9); Platelet Count 300 T/CUMM (130-400); Red Blood Count 3.86 MC/CUMM (3.8-5.5); Red Cell Distribution Width 15.6 % (9.3-17.3); White Blood Count 21.3 T/CUMM (4-12)
[2019-09-11 05:43] LABS: Hypochromasia 1+; Lymphocytes 6 % (20-55); Platelet Estimate Adequate; Segmented Neutrophils 93 % (50-85); Target Cells Few; Total Cells Counted 100
[2019-09-11 05:48] LABS: Calcium 9.2 MG/DL (8.5-10.1); Osmolality,Calculated 275.8 MOS/KG (273-304)
[2019-09-11] MEDS: POTASSIUM CHLORIDE 10 MEQ TABLET PO SCH (07:55)
[2019-09-11] MEDS: ENOXAPARIN 40 MG/0.4 ML SYRINGE SUBCUT SCH (07:55)
[2019-09-11] MEDS: OMEPRAZOLE ODT 20 MG TABLET PO SCH (07:55)
[2019-09-11] MEDS: MYCOPHENOLATE MOFETIL 250 MG CAPSULE PO SCH (07:55)
[2019-09-11] MEDS: amLODIPine 10 MG TABLET PO SCH (07:55)
[2019-09-11] MEDS: CALCIUM (CARBONATE) 600 MG TABLET PO SCH (07:55)
[2019-09-11] MEDS: carvediloL 3.125 MG TABLET PO SCH (07:55)
[2019-09-11] MEDS ORDERED: AZITHROMYCIN 250 MG TABLET PO SCH (09:00)
[2019-09-11] MEDS: HYDROXYCHLOROQUINE 200 MG TABLET PO SCH (10:25)
[2019-09-11 16:48] VITALS: BP 117/61
[2019-09-14] MEDS ORDERED: METHOTREXATE 2.5 MG TABLET PO SCH (09:00)
[2019-09-16 16:26] LABS: Alternaria tenuis/alternat IgG 9.6 mcg/mL (<12.0); Aspergillus fumigatus IgG 13.5 mcg/mL (<46.0); Aureobasidium pullulans IgG 9.4 mcg/mL (<18.0); Micropolyspora faeni IgG 4.5 mcg/mL (<5.0); Penicillium Chrysogenum IgG 11.7 mcg/mL (<22.0); Phoma betae IgG 8.5 mcg/mL (<8.0); Thermoactinomyces vulgaris IgG 6.3 mcg/mL (<13.0)
== END 2019-09-11 19:40 | disposition hospice, home (50) ==
LOC: EDBD → EDUNIT# → N.EDINP 00:52 → N.ED 00:52 → SUATTDRO 05:12 → N.2E 09:27
PROVIDERS: ADMIT Internal Medicine Geriatric Medicine; ATTEND Hospitalist